=== PATIENT | male | born 1945 | race Caucasian/White ===

== ENCOUNTER 2019-01-17 09:01 | Emergency (ER) | payer MEDICARE, OTHER | END 2019-01-17 09:56 | disposition home or self-care (01) | LOC: ERS 09:01 | DX: E86.0 Dehydration (principal); E78.5 Hyperlipidemia, unspecified; E78.00 Pure hypercholesterolemia, unspecified; F17.220 Nicotine dependence, chewing tobacco, uncomplicated; Z79.899 Other long term (current) drug therapy | CPT/HCPCS: 99284 ==